=== PATIENT | male | born 1985 | race Caucasian/White ===

== ENCOUNTER → 2016-09-18 | Outpatient (CLI) | payer BC | LOC: M SMT 10:50 | PROVIDERS: ATTEND Physician Assistant | DX: Z72.51 High risk heterosexual behavior (principal) ==

== ENCOUNTER → 2017-08-26 | Outpatient (CLI) | payer BC ==
[2017-08-26 21:29] LABS: CHLAMYDIA DNA AMPLIFICATION NEGATIVE (NEGATIVE); GC DNA AMPLIFICATION NEGATIVE (NEGATIVE)
[2017-08-28 10:45] LABS: HIV 1&2 SCREEN CENTAUR NEGATIVE (NEGATIVE)
[2017-08-28 10:45] LABS: HEPATITIS C VIRUS ABY INDEX 0.1 INDEX (<0.8)
[2017-08-29 00:06] LABS: HSV IgM TYPES 1&2 1.55 Ratio (0.00-0.90)
== END ==
LOC: M SMT 15:47
DX: Z72.51 High risk heterosexual behavior (principal)
CPT/HCPCS: 86694

== ENCOUNTER → 2017-08-30 | Outpatient (CLI) | payer BC ==
[2017-09-03 00:07] LABS: HSV TYPE I IgG SPECIFIC <0.91 index (0.00-0.90); HSV TYPE II IgG SPECIFIC <0.91 index (0.00-0.90)
== END ==
LOC: M SMT 14:28
DX: Z72.51 High risk heterosexual behavior (principal)
CPT/HCPCS: 86695

== ENCOUNTER → 2017-09-17 | Outpatient (CLI) | payer BC ==
[2017-09-20 00:37] LABS: HSV TYPE I IgG SPECIFIC <0.91 index (0.00-0.90); HSV TYPE I IgM AB <1:10 titer (<1:10); HSV TYPE II IgG SPECIFIC <0.91 index (0.00-0.90); HSV TYPE II IgM ABY <1:10 titer (<1:10)
== END ==
LOC: M SMT 08:46
DX: Z72.51 High risk heterosexual behavior (principal)
CPT/HCPCS: 86695